=== PATIENT | female | born 1970 | race Caucasian/White ===

== ENCOUNTER 2018-12-30 08:08 | Emergency (ER) | payer OTHER ==
[~2018-12-30] VITALS: Ht 160 cm; Wt 80.3 kg
[2018-12-30] MEDS ORDERED: TRAM1TAB98 (08:23)
[2018-12-30] MEDS ORDERED: HYOSCYAMINE0.125 MG (08:23)
[2018-12-30] MEDS ORDERED: DEXILANT60 MG (08:23)
[2018-12-30] MEDS ORDERED: ZOFRAN8 MG (08:24)
[2018-12-30] MEDS ORDERED: NITROFURANTOIN100 MG (08:24)
== END 2018-12-30 11:32 | disposition home or self-care (01) ==
LOC: ER 08:08
DX: M54.5 Low back pain (principal); R10.2 Pelvic and perineal pain

== ENCOUNTER 2019-01-10 10:57 | Emergency (ER) | payer OTHER ==
[~2019-01-10] VITALS: Ht 160 cm; Wt 78.5 kg
[~2019-01-10 10:57] MED LIST: DEXILANT60 MG; HYOSCYAMINE0.125 MG; NITROFURANTOIN100 MG; TRAM1TAB98; ZOFRAN8 MG
== END 2019-01-10 15:12 | disposition home or self-care (01) ==
LOC: ER 10:57
DX: M54.5 Low back pain (principal)

== ENCOUNTER 2019-03-24 09:05 | Emergency (ER) | payer OTHER ==
[~2019-03-24] VITALS: Ht 160 cm; Wt 71.7 kg
[2019-03-24] MEDS ORDERED: DEXILANT60 MG (09:13)
== END 2019-03-24 12:26 | disposition home or self-care (01) ==
LOC: ER 09:05
DX: J06.9 Acute upper respiratory infection, unspecified (principal)

== ENCOUNTER → 2019-07-05 | Emergency (ER) | payer OTHER ==
[~2019-07-05] VITALS: Ht 160 cm; Wt 70.3 kg
== END | disposition left against medical advice (07) ==
LOC: ER 22:30
DX: Z53.20 Procedure and treatment not carried out because of patient's decision for unspecified reasons (principal)